=== PATIENT | male | born 1955 | race Caucasian/White ===

== ENCOUNTER 2021-06-06 04:00 | Inpatient (IN) ==
[2021-06-06] MEDS ORDERED: SODIUM CHLORIDE 0.9% 500 ML IV STA (04:47)
[2021-06-06] MEDS ORDERED: ONDANSETRON 4 MG/2 ML VIAL IV STA (04:47)
[2021-06-06] MEDS ORDERED: ALBUTEROL/IPRATROPIUM 3 ML NEB RESP TX STA (04:47)
[2021-06-06] MEDS ORDERED: PIPERACILLIN/TAZOBACTAM 3,375 MG in SODIUM CHLORIDE 0.9% 100 ML IV STA (04:47)
[2021-06-06] MEDS ORDERED: methylPREDNISolone SOD SUC 125 MG/2 ML VIAL IV STA (04:47)
[2021-06-06] MEDS ORDERED: THIAMINE INJ 100 MG, FOLIC ACID INJ 1 MG, MAGNESIUM SULF INJ 2 GM, MULTIVITAMIN INJ 10 ... IV ONE (04:47)
[2021-06-06 05:01] LABS: Basophils % 0.4 % (0.0-0.8); Eosinophils # 0.2 10*3/uL (0.0-0.87); Eosinophils % 1.6 % (0.00-10.9); Hematocrit 27.5 VOL% (42.0-52.0); Hemoglobin 9.7 GM/DL (14.0-18.0); Immature Granulocytes % 0.6 %; Immature Granulocytes Absolute 0.06 #; Lymphocytes # 1.3 10*3/uL (1.4-4.0); Lymphocytes % 14.2 % (21.2-54.2); Mean Corpuscular HGB Conc 35.3 GM/DL (32-36); Mean Corpuscular Volume 104.2 FL (87-102); Mean Platelet Volume 9.9 FL (9.6-12.0); Monocytes % 7.8 % (1.7-12.7); Neutrophils % 75.4 % (38.7-73.9); Platelet Count 254 T/CUMM (130-400); Red Blood Count 2.64 MC/CUMM (3.8-5.5); Red Cell Distribution Width 17.4 % (9.3-17.3); White Blood Count 9.5 T/CUMM (4-12)
[2021-06-06 05:07] LABS: PT Patient Result 11.7 SECS (10.5-12.0)
[2021-06-06 05:14] LABS: Alanine Aminotransferase 16 U/L (16-61); Alkaline Phosphatase 193 U/L (45-117); Aspartate Amino Transferase 37 U/L (0-37); Blood Urea Nitrogen 11 MG/DL (7-18); Calcium 7.6 MG/DL (8.5-10.1); Carbon Dioxide 24 MMOL/L (21-32); Estimated Glom Filtration Rate 117 ML/MIN; Glucose 95 MG/DL (74-106); Osmolality,Calculated 251.4 MOS/KG (273-304); Potassium 3.4 MMOL/L (3.5-5.1); Sodium 126 MMOL/L (136-145); Total Protein 6.2 G/DL (6.4-8.2)
[2021-06-06] MEDS ORDERED: DILTIAZEM 25 MG/5 ML VIAL IV ONE (06:04)
[2021-06-06] MEDS ORDERED: DEXTROSE 10% 25 GM/250 ML BAG IV PRN (06:13)
[2021-06-06] MEDS ORDERED: GLUCAGON 1 MG VIAL IM PRN (06:13)
[2021-06-06] MEDS ORDERED: LORazepam 2 MG/1 ML VIAL IV PRN (06:13)
[2021-06-06] MEDS ORDERED: POTASSIUM CHLORIDE 20 MEQ TABLET PO PRN (06:13)
[2021-06-06] MEDS ORDERED: SIMETHICONE CHEW 125 MG TABLET PO PRN (06:13)
[2021-06-06] MEDS ORDERED: MAGNESIUM SULF RIDER 4 GM/100 ML PREMIX IV PRN (06:13)
[2021-06-06] MEDS ORDERED: ONDANSETRON 4 MG/2 ML VIAL IV PRN (06:13)
[2021-06-06] MEDS ORDERED: ACETAMINOPHEN 325 MG TABLET PO PRN (06:13)
[2021-06-06] MEDS ORDERED: ALBUTEROL/IPRATROPIUM 3 ML NEB RESP TX PRN (06:13)
[2021-06-06] MEDS ORDERED: DILTIAZEM 50 MG/10 ML VIAL IV STA ×2 (06:17→12:32)
[2021-06-06] MEDS ORDERED: VANCOMYCIN INJ 1,000 MG in SODIUM CHLORIDE 0.9% 250 ML IV ONE (06:28)
[2021-06-06] MEDS: PIPERACILLIN/TAZOBACTAM 3,375 MG in SODIUM CHLORIDE 0.9% 100 ML IV SCH ×3 (07:00→22:08)
[2021-06-06] MEDS: MORPHINE 2 MG/1 ML SYRINGE IV PRN ×2 (07:17→10:52)
[2021-06-06 07:28] LABS: % Iron Saturation 91.9 % (18-50)
[2021-06-06 07:38] LABS: Risk Ratio 1.61; Thyroid Stimulating Hormone 9.36 uIU/ml (0.358-3.74); VLDL Cholesterol 14.8 MG/DL
[2021-06-06] MEDS ORDERED: VANCOMYCIN INJ 1,000 MG in SODIUM CHLORIDE 0.9% 250 ML IV STA (10:06)
[2021-06-06] MEDS: NICOTINE 21 MG/24 HR PATCH TRANSDERM SCH (10:07)
[2021-06-06] MEDS: METOPROLOL TARTRATE 25 MG TABLET PO SCH ×3 (10:07→22:01)
[2021-06-06] MEDS: chlordiazePOXIDE 25 MG CAPSULE PO SCH ×3 (10:07→18:19)
[2021-06-06] MEDS: ENOXAPARIN 40 MG/0.4 ML SYRINGE SUBCUT SCH (10:07)
[2021-06-06] MEDS: SODIUM CHLORIDE 0.9% 1,000 ML IV SCH ×2 (10:08→16:48)
[2021-06-06] MEDS: DOCUSATE SODIUM 100 MG CAPSULE PO SCH ×2 (10:08→21:34)
[2021-06-06] MEDS: POTASSIUM CHLORIDE RIDER 10 MEQ/100 ML PREMIX IV PRN ×3 (11:59→14:15)
[2021-06-06 12:21] LABS: Bilirubin,Urine Negative (Negative); Blood, Urine Small mg/dL (Negative); Glucose,Urine (UA) Negative (Negative); Ketones,Urine Negative (Negative); Nitrite,Urine Negative (Negative); Protein,Urine Negative; RBC,Urine 5 /HPF (0-4); Urine Appearance CLEAR (Clear); Urine Color Yellow (Yellow); Urine Specific Gravity 1.031 (1.001-1.035)
[2021-06-06 12:38] LABS: Barbiturates Screen,Urine Negative (Negative); Benzodiazepines Screen,Urine Negative (Negative); Cannabinoid Screen,Urine Negative (Negative); Opiate Screen,Urine Positive (Negative); Phencyclidine Screen,Urine Negative (Negative)
[2021-06-06] MEDS: MAGNESIUM SULF RIDER 2 GM/50 ML PREMIX IV PRN ×2 (16:48→19:18)
[2021-06-06] MEDS ORDERED: INFLUENZA VIRUS VACCINE 0.5 ML SYRINGE IM ONE (22:27)
[2021-06-07] MEDS: chlordiazePOXIDE 25 MG CAPSULE PO SCH ×4 (00:31→21:44)
[2021-06-07] MEDS: PIPERACILLIN/TAZOBACTAM 3,375 MG in SODIUM CHLORIDE 0.9% 100 ML IV SCH ×3 (05:33→21:45)
[2021-06-07] MEDS: ENOXAPARIN 40 MG/0.4 ML SYRINGE SUBCUT SCH (05:33)
[2021-06-07 05:50] LABS: Hematocrit 21.5 VOL% (42.0-52.0); Hemoglobin 7.1 GM/DL (14.0-18.0); Immature Granulocytes % 0.7 %; Immature Granulocytes Absolute 0.08 #; Lymphocytes # 0.8 10*3/uL (1.4-4.0); Lymphocytes % 7.2 % (21.2-54.2); Mean Corpuscular Volume 110.3 FL (87-102); Mean Platelet Volume 10.4 FL (9.6-12.0); Monocytes % 5.7 % (1.7-12.7); Neutrophils % 86.4 % (38.7-73.9); Platelet Count 156 T/CUMM (130-400); Red Blood Count 1.95 MC/CUMM (3.8-5.5); Red Cell Distribution Width 17.9 % (9.3-17.3); White Blood Count 11.5 T/CUMM (4-12)
[2021-06-07 06:13] LABS: Osmolality,Calculated 268.2 MOS/KG (273-304); Potassium 3.8 MMOL/L (3.5-5.1)
[2021-06-07] MEDS: METOPROLOL TARTRATE 25 MG TABLET PO SCH ×2 (09:10→21:18)
[2021-06-07] MEDS: DOCUSATE SODIUM 100 MG CAPSULE PO SCH ×2 (09:10→21:18)
[2021-06-07] MEDS: NICOTINE 21 MG/24 HR PATCH TRANSDERM SCH (09:10)
[2021-06-07] MEDS: SODIUM CHLORIDE 0.9% 1,000 ML IV SCH ×2 (11:34→18:37)
[2021-06-07] MEDS: THIAMINE INJ 100 MG, FOLIC ACID INJ 1 MG, MULTIVITAMIN INJ 10 ML in SODIUM CHLORIDE 0.9... IV SCH (11:36)
[2021-06-07] MEDS: SKIN HEALING OINT (AQUAPHOR) 50 GM TUBE TOP SCH (17:35)
[2021-06-08] MEDS: chlordiazePOXIDE 25 MG CAPSULE PO SCH ×4 (05:42→21:46)
[2021-06-08 05:43] LABS: Basophils % 0.2 % (0.0-0.8); Eosinophils # 0.1 10*3/uL (0.0-0.87); Hematocrit 22.9 VOL% (42.0-52.0); Hemoglobin 7.7 GM/DL (14.0-18.0); Immature Granulocytes % 1.1 %; Lymphocytes # 1.3 10*3/uL (1.4-4.0); Lymphocytes % 14.2 % (21.2-54.2); Mean Corpuscular HGB Conc 33.6 GM/DL (32-36); Mean Corpuscular Volume 108.5 FL (87-102); Mean Platelet Volume 10.5 FL (9.6-12.0); Monocytes % 5.9 % (1.7-12.7); Neutrophils % 77.6 % (38.7-73.9); Platelet Count 167 T/CUMM (130-400); Red Blood Count 2.11 MC/CUMM (3.8-5.5); Red Cell Distribution Width 17.9 % (9.3-17.3)
[2021-06-08 05:54] LABS: Calcium 7.5 MG/DL (8.5-10.1); Osmolality,Calculated 269.1 MOS/KG (273-304); Potassium 3.4 MMOL/L (3.5-5.1)
[2021-06-08] MEDS: ENOXAPARIN 40 MG/0.4 ML SYRINGE SUBCUT SCH (06:03)
[2021-06-08] MEDS: PIPERACILLIN/TAZOBACTAM 3,375 MG in SODIUM CHLORIDE 0.9% 100 ML IV SCH ×3 (06:03→21:46)
[2021-06-08 06:10] LABS: Eosinophils 1 % (0-10); Hypochromia 1+; Lymphocytes 10 % (20-55); Microcytosis 1+; Platelet Estimate Adequate; Segmented Neutrophils 84 % (50-85); Total Cells Counted 100
[2021-06-08] MEDS: THIAMINE INJ 100 MG, FOLIC ACID INJ 1 MG, MULTIVITAMIN INJ 10 ML in SODIUM CHLORIDE 0.9... IV SCH (11:50)
[2021-06-08] MEDS: METOPROLOL TARTRATE 25 MG TABLET PO SCH ×2 (11:59→20:45)
[2021-06-08] MEDS: NICOTINE 21 MG/24 HR PATCH TRANSDERM SCH (11:59)
[2021-06-08] MEDS: DOCUSATE SODIUM 100 MG CAPSULE PO SCH ×2 (11:59→20:45)
[2021-06-08] MEDS: SKIN HEALING OINT (AQUAPHOR) 50 GM TUBE TOP SCH (12:03)
[2021-06-08] MEDS: SODIUM CHLORIDE 0.9% 1,000 ML IV SCH (19:07)
[2021-06-09] MEDS: chlordiazePOXIDE 25 MG CAPSULE PO SCH ×2 (04:10→10:08)
[2021-06-09] MEDS: ENOXAPARIN 40 MG/0.4 ML SYRINGE SUBCUT SCH (05:32)
[2021-06-09] MEDS: PIPERACILLIN/TAZOBACTAM 3,375 MG in SODIUM CHLORIDE 0.9% 100 ML IV SCH ×3 (05:33→21:43)
[2021-06-09 05:37] LABS: Basophils % 0.3 % (0.0-0.8); Eosinophils # 0.1 10*3/uL (0.0-0.87); Eosinophils % 0.5 % (0.00-10.9); Hematocrit 25.9 VOL% (42.0-52.0); Hemoglobin 8.8 GM/DL (14.0-18.0); Immature Granulocytes % 1.3 %; Immature Granulocytes Absolute 0.14 #; Lymphocytes # 1.3 10*3/uL (1.4-4.0); Lymphocytes % 12.3 % (21.2-54.2); Mean Corpuscular Volume 109.7 FL (87-102); Mean Platelet Volume 10.4 FL (9.6-12.0); Monocytes % 8.6 % (1.7-12.7); NRBC # 0.03 10*3/uL; Platelet Count 214 T/CUMM (130-400); Red Blood Count 2.36 MC/CUMM (3.8-5.5); Red Cell Distribution Width 18.4 % (9.3-17.3); White Blood Count 10.6 T/CUMM (4-12)
[2021-06-09 05:48] LABS: Calcium 7.4 MG/DL (8.5-10.1); Osmolality,Calculated 272.8 MOS/KG (273-304); Potassium 3.6 MMOL/L (3.5-5.1)
[2021-06-09] MEDS: DOCUSATE SODIUM 100 MG CAPSULE PO SCH ×2 (08:43→21:43)
[2021-06-09] MEDS: SKIN HEALING OINT (AQUAPHOR) 50 GM TUBE TOP SCH (08:43)
[2021-06-09] MEDS: METOPROLOL TARTRATE 25 MG TABLET PO SCH ×2 (08:43→21:43)
[2021-06-09] MEDS: NICOTINE 21 MG/24 HR PATCH TRANSDERM SCH (08:49)
[2021-06-09] MEDS: THIAMINE INJ 100 MG, FOLIC ACID INJ 1 MG, MULTIVITAMIN INJ 10 ML in SODIUM CHLORIDE 0.9... IV SCH (10:07)
[2021-06-09] MEDS: LACTATED RINGERS 1,000 ML IV SCH (16:23)
[2021-06-10] MEDS: LACTATED RINGERS 1,000 ML IV SCH ×2 (02:39→13:22)
[2021-06-10 05:22] LABS: Calcium 8.1 MG/DL (8.5-10.1); Osmolality,Calculated 273.8 MOS/KG (273-304); Potassium 4.3 MMOL/L (3.5-5.1)
[2021-06-10 05:23] LABS: Basophils % 0.3 % (0.0-0.8); Eosinophils % 0.3 % (0.00-10.9); Hematocrit 40.8 VOL% (42.0-52.0); Hemoglobin 13.9 GM/DL (14.0-18.0); Immature Granulocytes % 0.9 %; Immature Granulocytes Absolute 0.14 #; Lymphocytes # 0.7 10*3/uL (1.4-4.0); Lymphocytes % 4.7 % (21.2-54.2); Mean Corpuscular HGB Conc 34.1 GM/DL (32-36); Mean Corpuscular Volume 107.7 FL (87-102); Mean Platelet Volume 10.6 FL (9.6-12.0); Monocytes % 7.9 % (1.7-12.7); Neutrophils % 85.9 % (38.7-73.9); Platelet Count 141 T/CUMM (130-400); Red Blood Count 3.79 MC/CUMM (3.8-5.5); Red Cell Distribution Width 18.9 % (9.3-17.3); White Blood Count 15.2 T/CUMM (4-12)
[2021-06-10] MEDS: PIPERACILLIN/TAZOBACTAM 3,375 MG in SODIUM CHLORIDE 0.9% 100 ML IV SCH ×3 (05:41→21:58)
[2021-06-10 05:46] LABS: Lymphocytes 5 % (20-55); Platelet Estimate Adequate; Segmented Neutrophils 86 % (50-85); Total Cells Counted 100
[2021-06-10 09:29] LABS: Basophils # 0.1 10*3/uL (0.0-0.2); Basophils % 0.3 % (0.0-0.8); Eosinophils % 0.1 % (0.00-10.9); Hematocrit 30.6 VOL% (42.0-52.0); Hemoglobin 10.1 GM/DL (14.0-18.0); Immature Granulocytes % 0.8 %; Immature Granulocytes Absolute 0.15 #; Lymphocytes # 0.6 10*3/uL (1.4-4.0); Lymphocytes % 3.1 % (21.2-54.2); Mean Corpuscular Volume 110.5 FL (87-102); Mean Platelet Volume 9.8 FL (9.6-12.0); Neutrophils % 86.7 % (38.7-73.9); Platelet Count 206 T/CUMM (130-400); Red Blood Count 2.77 MC/CUMM (3.8-5.5); White Blood Count 19.6 T/CUMM (4-12)
[2021-06-10 09:51] LABS: Lymphocytes 4 % (20-55); Segmented Neutrophils 91 % (50-85); Total Cells Counted 100
[2021-06-10 09:52] LABS: Hypochromia Slight; Microcytosis Slight; Platelet Estimate Adequate
[2021-06-10] MEDS: DOCUSATE SODIUM 100 MG CAPSULE PO SCH ×2 (09:55→20:43)
[2021-06-10] MEDS: MULTIVITAMIN (CENTRUM) TABLET PO SCH (09:55)
[2021-06-10] MEDS: FOLIC ACID 1 MG TABLET PO SCH (09:55)
[2021-06-10] MEDS: METOPROLOL TARTRATE 25 MG TABLET PO SCH ×3 (09:55→21:16)
[2021-06-10] MEDS: NICOTINE 21 MG/24 HR PATCH TRANSDERM SCH (09:56)
[2021-06-10] MEDS: SKIN HEALING OINT (AQUAPHOR) 50 GM TUBE TOP SCH (09:56)
[2021-06-10] MEDS: ENOXAPARIN 40 MG/0.4 ML SYRINGE SUBCUT SCH (10:28)
[2021-06-10] MEDS: THIAMINE INJ 100 MG, FOLIC ACID INJ 1 MG, MULTIVITAMIN INJ 10 ML in SODIUM CHLORIDE 0.9... IV SCH (12:59)
[2021-06-10 19:23] LABS: Urine Appearance Clear (Clear); Urine Color Yellow (Yellow); Urine Specific Gravity >= 1.030 (1.001-1.035)
[2021-06-10 19:24] LABS: Bilirubin,Urine Small mg/dL (Negative); Glucose,Urine (UA) Negative (Negative); Ketones,Urine Trace mg/dL (Negative); Nitrite,Urine Negative (Negative); Protein,Urine 30 MG/DL
[2021-06-10 19:25] LABS: Blood, Urine Trace mg/dL (Negative)
[2021-06-10 19:29] LABS: Hyaline Casts,Urine 4 /LPF (0-3); RBC,Urine 6 /HPF (0-4); Squamous Epithelial Cell,Urine Occasional /HPF (0-10)
[2021-06-10] MEDS ORDERED: VANCOMYCIN INJ 1,000 MG in SODIUM CHLORIDE 0.9% 250 ML IV ONE (22:59)
[2021-06-10] MEDS: ACETAMINOPHEN 650 MG SUPP RECTAL PRN (23:20)
[2021-06-11] MEDS: PIPERACILLIN/TAZOBACTAM 3,375 MG in SODIUM CHLORIDE 0.9% 100 ML IV SCH ×3 (05:49→21:34)
[2021-06-11] MEDS: ENOXAPARIN 40 MG/0.4 ML SYRINGE SUBCUT SCH (05:49)
[2021-06-11 06:48] LABS: Basophils % 0.2 % (0.0-0.8); Hematocrit 25.1 VOL% (42.0-52.0); Hemoglobin 8.4 GM/DL (14.0-18.0); Immature Granulocytes % 0.9 %; Immature Granulocytes Absolute 0.09 #; Lymphocytes # 0.5 10*3/uL (1.4-4.0); Lymphocytes % 4.4 % (21.2-54.2); Mean Corpuscular HGB Conc 33.5 GM/DL (32-36); Mean Corpuscular Volume 109.1 FL (87-102); Mean Platelet Volume 9.7 FL (9.6-12.0); Monocytes % 8.9 % (1.7-12.7); Neutrophils % 85.6 % (38.7-73.9); Platelet Count 134 T/CUMM (130-400); Red Cell Distribution Width 19.5 % (9.3-17.3); White Blood Count 10.3 T/CUMM (4-12)
[2021-06-11 07:26] LABS: Lymphocytes 3 % (20-55); Macrocytosis 2+; Metamyelocytes 1 %; Platelet Estimate Adequate; Polychromasia Slight; Segmented Neutrophils 96 % (50-85); Total Cells Counted 100
[2021-06-11 08:49] LABS: Calcium 7.5 MG/DL (8.5-10.1); Osmolality,Calculated 283.1 MOS/KG (273-304); Potassium 3.9 MMOL/L (3.5-5.1)
[2021-06-11] MEDS: NICOTINE 21 MG/24 HR PATCH TRANSDERM SCH (09:40)
[2021-06-11] MEDS: METOPROLOL TARTRATE 25 MG TABLET PO SCH ×2 (11:27→20:40)
[2021-06-11] MEDS: DOCUSATE SODIUM 100 MG CAPSULE PO SCH ×2 (11:27→20:43)
[2021-06-11] MEDS: FOLIC ACID 1 MG TABLET PO SCH (11:27)
[2021-06-11] MEDS: LACTATED RINGERS 1,000 ML IV SCH (11:28)
[2021-06-11] MEDS: MULTIVITAMIN (CENTRUM) TABLET PO SCH (11:28)
[2021-06-11] MEDS: SKIN HEALING OINT (AQUAPHOR) 50 GM TUBE TOP SCH (11:28)
[2021-06-11] MEDS: ACETAMINOPHEN 650 MG SUPP RECTAL PRN (16:17)
[2021-06-12 05:11] LABS: Basophils % 0.2 % (0.0-0.8); Eosinophils % 0.3 % (0.00-10.9); Hematocrit 24.3 VOL% (42.0-52.0); Hemoglobin 8.2 GM/DL (14.0-18.0); Immature Granulocytes % 0.6 %; Immature Granulocytes Absolute 0.06 #; Lymphocytes # 0.7 10*3/uL (1.4-4.0); Lymphocytes % 7.7 % (21.2-54.2); Mean Corpuscular HGB Conc 33.7 GM/DL (32-36); Mean Platelet Volume 10.5 FL (9.6-12.0); Neutrophils % 83.2 % (38.7-73.9); Platelet Count 112 T/CUMM (130-400); Red Blood Count 2.25 MC/CUMM (3.8-5.5); Red Cell Distribution Width 19.4 % (9.3-17.3); White Blood Count 9.6 T/CUMM (4-12)
[2021-06-12] MEDS: ACETAMINOPHEN 650 MG SUPP RECTAL PRN (05:11)
[2021-06-12 05:33] LABS: Calcium 7.9 MG/DL (8.5-10.1); Potassium 3.8 MMOL/L (3.5-5.1)
[2021-06-12] MEDS: PIPERACILLIN/TAZOBACTAM 3,375 MG in SODIUM CHLORIDE 0.9% 100 ML IV SCH ×3 (05:44→23:17)
[2021-06-12] MEDS: ENOXAPARIN 40 MG/0.4 ML SYRINGE SUBCUT SCH (05:45)
[2021-06-12] MEDS: MAGNESIUM SULF RIDER 2 GM/50 ML PREMIX IV PRN (08:58)
[2021-06-12] MEDS: NICOTINE 21 MG/24 HR PATCH TRANSDERM SCH (08:58)
[2021-06-12] MEDS ORDERED: FUROSEMIDE 40 MG/4 ML VIAL IV ONE (09:31)
[2021-06-12] MEDS: METOPROLOL TARTRATE 25 MG TABLET PO SCH ×2 (09:46→23:01)
[2021-06-12] MEDS: DOCUSATE SODIUM 100 MG CAPSULE PO SCH ×2 (09:46→23:01)
[2021-06-12] MEDS: FOLIC ACID 1 MG TABLET PO SCH (09:46)
[2021-06-12] MEDS: MULTIVITAMIN (CENTRUM) TABLET PO SCH (09:46)
[2021-06-12] MEDS: LACTATED RINGERS 1,000 ML IV SCH (09:47)
[2021-06-12] MEDS: SKIN HEALING OINT (AQUAPHOR) 50 GM TUBE TOP SCH (10:21)
[2021-06-12 11:28] LABS: ABG Base Excess 0.3 MMOL/L (-2.5-2.5); ABG HCO3 24.6 MMOL/L (20-26); ABG Oxygen Saturation 92.4 % (95-100); ABG PCO2 36.3 MM HG (35-48); ABG PH 7.434 (7.35-7.45); ABG PO2 66.9 MM HG (80-95); ABG TCO2 22.5 MMOL/L (23-27); Allen Test Positive
[2021-06-12] MEDS: VANCOMYCIN INJ 1,250 MG in SODIUM CHLORIDE 0.9% 250 ML IV SCH (12:22)
[2021-06-12 13:04] LABS: Hyaline Casts,Urine 3 /LPF (0-3); Mucus,Urine Occasional /LPF (Occasional); RBC,Urine 5 /HPF (0-4); Squamous Epithelial Cell,Urine Occasional /HPF (0-10)
[2021-06-12 13:06] LABS: Bilirubin,Urine Negative (Negative); Blood, Urine Small mg/dL (Negative); Glucose,Urine (UA) Negative (Negative); Ketones,Urine Negative (Negative); Nitrite,Urine Negative (Negative); Protein,Urine Negative; Urine Appearance Cloudy (Clear); Urine Color Light Yellow (Yellow); Urine Urobilinogen < 2.0 EU/DL (<2.0)
[2021-06-12] MEDS ORDERED: THIAMINE 200 MG/2 ML VIAL IV SCH (15:00)
[2021-06-12] MEDS: THIAMINE INJ 500 MG in SODIUM CHLORIDE 0.9% 100 ML IV SCH ×2 (18:07→22:09)
[2021-06-12] MEDS ORDERED: MORPHINE 4 MG/1 ML VIAL IV PRN (20:07)
[2021-06-12] MEDS: ASCORBIC ACID 500 MG TABLET PO SCH (23:02)
[2021-06-13] MEDS: VANCOMYCIN INJ 1,250 MG in SODIUM CHLORIDE 0.9% 250 ML IV SCH ×2 (03:29→14:09)
[2021-06-13] MEDS: ACETAMINOPHEN 650 MG SUPP RECTAL PRN ×3 (03:40→23:55)
[2021-06-13 04:53] LABS: Basophils % 0.4 % (0.0-0.8); Eosinophils # 0.1 10*3/uL (0.0-0.87); Eosinophils % 0.9 % (0.00-10.9); Hematocrit 23.4 VOL% (42.0-52.0); Hemoglobin 7.8 GM/DL (14.0-18.0); Immature Granulocytes % 0.9 %; Immature Granulocytes Absolute 0.08 #; Lymphocytes # 0.7 10*3/uL (1.4-4.0); Mean Corpuscular HGB Conc 33.3 GM/DL (32-36); Mean Corpuscular Volume 106.8 FL (87-102); Monocytes % 5.4 % (1.7-12.7); Neutrophils % 84.4 % (38.7-73.9); Red Blood Count 2.19 MC/CUMM (3.8-5.5); Red Cell Distribution Width 19.2 % (9.3-17.3); White Blood Count 8.5 T/CUMM (4-12)
[2021-06-13 05:01] LABS: Platelet Count 91 T/CUMM (130-400)
[2021-06-13 05:14] LABS: Calcium 7.2 MG/DL (8.5-10.1); Hypochromia 1+; Osmolality,Calculated 292.4 MOS/KG (273-304); Potassium 3.6 MMOL/L (3.5-5.1)
[2021-06-13 05:15] LABS: Anisocytosis 1+; Macrocytosis 1+; Platelet Estimate Decreased; Target Cells Few
[2021-06-13] MEDS: PIPERACILLIN/TAZOBACTAM 3,375 MG in SODIUM CHLORIDE 0.9% 100 ML IV SCH ×3 (05:45→22:03)
[2021-06-13] MEDS: ENOXAPARIN 40 MG/0.4 ML SYRINGE SUBCUT SCH (05:45)
[2021-06-13] MEDS ORDERED: CETIRIZINE 10 MG TABLET PO SCH (09:00)
[2021-06-13] MEDS ORDERED: CHOLECALCIFEROL 1,000 UNIT TABLET PO SCH (09:00)
[2021-06-13] MEDS ORDERED: ZINC GLUCONATE 50 MG TABLET PO SCH (09:00)
[2021-06-13] MEDS: MULTIVITAMIN (CENTRUM) TABLET PO SCH (10:39)
[2021-06-13] MEDS: ASCORBIC ACID 500 MG TABLET PO SCH ×2 (10:40→22:21)
[2021-06-13] MEDS: DOCUSATE SODIUM 100 MG CAPSULE PO SCH ×2 (10:40→22:21)
[2021-06-13] MEDS: METOPROLOL TARTRATE 25 MG TABLET PO SCH ×2 (10:40→22:21)
[2021-06-13] MEDS: FOLIC ACID 1 MG TABLET PO SCH (10:40)
[2021-06-13] MEDS: NICOTINE 21 MG/24 HR PATCH TRANSDERM SCH (10:47)
[2021-06-13] MEDS: SKIN HEALING OINT (AQUAPHOR) 50 GM TUBE TOP SCH (10:47)
[2021-06-13] MEDS: THIAMINE INJ 500 MG in SODIUM CHLORIDE 0.9% 100 ML IV SCH ×2 (11:05→18:09)
[2021-06-13] MEDS ORDERED: METOPROLOL TARTRATE 5 MG/5 ML VIAL IV SCH (12:00)
[2021-06-13] MEDS: METOPROLOL TARTRATE 5 MG/5 ML VIAL IV SCH ×3 (13:18→23:39)
[2021-06-14] MEDS: THIAMINE INJ 500 MG in SODIUM CHLORIDE 0.9% 100 ML IV SCH (02:45)
[2021-06-14 05:46] LABS: Basophils % 0.3 % (0.0-0.8); Eosinophils % 0.1 % (0.00-10.9); Hematocrit 31.4 VOL% (42.0-52.0); Hemoglobin 9.7 GM/DL (14.0-18.0); Immature Granulocytes % 2.3 %; Immature Granulocytes Absolute 0.34 #; Lymphocytes % 6.6 % (21.2-54.2); Mean Corpuscular HGB Conc 30.9 GM/DL (32-36); Mean Corpuscular Volume 114.6 FL (87-102); Mean Platelet Volume 11.1 FL (9.6-12.0); Monocytes % 6.1 % (1.7-12.7); NRBC # 0.02 10*3/uL; Neutrophils % 84.6 % (38.7-73.9); Platelet Count 106 T/CUMM (130-400); Red Blood Count 2.74 MC/CUMM (3.8-5.5)
[2021-06-14] MEDS: VANCOMYCIN INJ 1,250 MG in SODIUM CHLORIDE 0.9% 250 ML IV SCH ×2 (06:09→16:02)
[2021-06-14 06:11] LABS: Calcium 8.3 MG/DL (8.5-10.1); Osmolality,Calculated 291.7 MOS/KG (273-304); Potassium 4.6 MMOL/L (3.5-5.1)
[2021-06-14] MEDS: PIPERACILLIN/TAZOBACTAM 3,375 MG in SODIUM CHLORIDE 0.9% 100 ML IV SCH (06:11)
[2021-06-14 06:12] LABS: Hypochromia 1+; Lymphocytes 3 % (20-55); Microcytosis 1+; Nucleated Red Blood Cells 1 (0-5); Platelet Estimate Decreased; Segmented Neutrophils 91 % (50-85); Total Cells Counted 100
[2021-06-14] MEDS: ENOXAPARIN 40 MG/0.4 ML SYRINGE SUBCUT SCH (06:35)
[2021-06-14] MEDS: METOPROLOL TARTRATE 5 MG/5 ML VIAL IV SCH ×3 (06:35→18:58)
[2021-06-14] MEDS: MORPHINE 4 MG/1 ML VIAL IV PRN ×2 (12:13→16:34)
[2021-06-14] MEDS: NICOTINE 21 MG/24 HR PATCH TRANSDERM SCH (12:44)
[2021-06-14] MEDS: SKIN HEALING OINT (AQUAPHOR) 50 GM TUBE TOP SCH (12:44)
[2021-06-14] MEDS: LORazepam 2 MG/1 ML VIAL IV PRN ×2 (14:50→18:46)
[2021-06-15] MEDS: METOPROLOL TARTRATE 5 MG/5 ML VIAL IV SCH ×4 (01:13→17:37)
[2021-06-15] MEDS: VANCOMYCIN INJ 1,250 MG in SODIUM CHLORIDE 0.9% 250 ML IV SCH ×2 (02:45→14:39)
[2021-06-15 06:29] VITALS: BP 77/47
[2021-06-15] MEDS: SKIN HEALING OINT (AQUAPHOR) 50 GM TUBE TOP SCH (10:17)
[2021-06-15] MEDS: NICOTINE 21 MG/24 HR PATCH TRANSDERM SCH (10:18)
[2021-06-15] MEDS: MORPHINE 4 MG/1 ML VIAL IV PRN ×4 (10:34→18:39)
[2021-06-15] MEDS: LORazepam 2 MG/1 ML VIAL IV PRN ×2 (15:35→17:38)
[2021-06-15] MEDS ORDERED: THIAMINE IV SCH (21:00)
[2021-06-15] MEDS ORDERED: SODIUM CHLORIDE 0.9% IV SCH (21:00)
== END 2021-06-15 18:58 | disposition expired | DRG 299 ==
LOC: EDUNIT# → N.ED 04:00 → N.EDINP 06:13 → SUATTDRO 06:13 → N.TELES 18:41 → N.5E 06-14 03:43
PROVIDERS: ADMIT Internal Medicine; ATTEND Internal Medicine